=== PATIENT | male | born 1955 | race Caucasian/White ===

== ENCOUNTER 2017-12-04 12:16 | Day surgery (SDC) | payer BC ==
[~2017-12-04 12:16] MED LIST: ASPI81TA82 PO; ATOR20TA42
[2017-12-04] MEDS ORDERED: POVIDONE IODINE 5% (ANTISEPSIS KIT) 4 APPLICATIONS EACH NARE PRN (12:45)
[2017-12-04] MEDS ORDERED: CHLORHEXIDINE GLUCONATE 2 % 1 PACK (2 CLOTHS) TOPICAL PRN (12:45)
[2017-12-04] MEDS ORDERED: LACTATED RINGER'S 1000 ML IV PRN (12:45)
[2017-12-04] MEDS ORDERED: SODIUM CHLORID 0.9% 500 ML IV PRN (12:45)
[2017-12-04] MEDS ORDERED: METOPROLOL TARTRATE 25 MG TAB PO PRN (12:45)
[2017-12-04] MEDS ORDERED: MULT400T PO (12:56)
[2017-12-04] MEDS ORDERED: TYLE325T PO (12:56)
[2017-12-04] MEDS ORDERED: METO25TA3 PO (12:56)
[2017-12-04] MEDS ORDERED: OMEP40CA2 (12:56)
[2017-12-04] MEDS ORDERED: LIPI20TA PO (12:56)
[2017-12-04] MEDS ORDERED: MULTTAB4 (12:56)
[2017-12-04] MEDS ORDERED: APIX5TAB PO (12:56)
[2017-12-04] MEDS ORDERED: PROPOFOL 200 MG/20 ML AMP ONE (14:13)
[2017-12-04] MEDS ORDERED: MIDAZOLAM HCL 2 MG/2 ML VIAL ONE (14:45)
--- NOTE | 2017-12-04 14:56 | MR ---
cc: Gildardo Hart MD, David W MD DATE: 12/04/2017 PROCEDURE PERFORMED: Cardioversion. INDICATION: Atrial fibrillation. CONSENT: Full informed consent was obtained prior to the procedure. The risk of , cardiac arrest, foreseen and unforeseen complications were reviewed. The patient appeared to fully understand these risks. PROCEDURE: The patient was anesthetized as per the Anesthesia Department. The patient underwent ALEXEY. There was no evidence for left atrial appendage thrombus. A 200 joule synchronous shock was then carried out. CONCLUSION: Successful cardioversion from atrial fibrillation to sinus rhythm. PLAN: We will plan to discharge the patient today. Followup in due course in my office and in Dr. Gilmore's office. Gildardo Hart MD HAJ/TL , 02:40 PM , 02:55 PM
--- NOTE | 2017-12-04 15:19 | CF ---
cc: Gildardo Hart MD DATE: 12/04/2017 PROCEDURE: Transesophageal echo. INDICATION: 1. Rule out left atrial appendage thrombus. 2. Mitral regurgitation. PROCEDURAL STATEMENT: The patient was draped and prepped in the usual manner. Anesthesia was given by the Anesthesia Department. Full ALEXEY was performed; however, this had to be cut short as the patient was coughing and desaturating. The left atrial appendage was free of thrombus. The interatrial septum was intact and the left ventricular function was normal. The interventricular septum was intact. Right atrium and right atrial appendage are intact. CONCLUSION: No evidence of [id number] shunting. Normal left ventricular appendage. PLAN: Proceed with cardioversion. Gildardo Hart MD HAJ/ERICK , 02:38 PM , 03:18 PM
--- NOTE | 2017-12-05 07:37 | EKG ---
Date Performed: 12/04/2017 Time Performed: 14:51:50 PTAGE: 62 years EKG: Sinus rhythm . Normal ECG PREVIOUS TRACING : 12/04/2017 12.33 DOCTOR: Tristen Ruffin Interpretating Date/Time 12/05/2017 07:32:58
--- NOTE | 2017-12-05 14:03 | EKG ---
Date Performed: 12/04/2017 Time Performed: 12:33:42 PTAGE: 62 years EKG: Atrial fibrillation. Abnormal ECG PREVIOUS TRACING : 10/04/2015 05.54 DOCTOR: Tristen Ruffin Interpretating Date/Time 12/05/2017 14:01:59
== END 2017-12-04 15:50 | disposition home or self-care (01) ==
LOC: HSDC 12:16 → HDIC 12:17 → HSDC 15:50
PROVIDERS: ATTEND Internal Medicine Cardiovascular Disease
DX: I48.91 Unspecified atrial fibrillation (principal); I10 Essential (primary) hypertension; I34.1 Nonrheumatic mitral (valve) prolapse; Z79.01 Long term (current) use of anticoagulants
CPT/HCPCS: 00410; 92960; 93005; 93312; 93320; 93325; J2250

== ENCOUNTER 2017-12-08 16:13 | Emergency (ER) | payer BC ==
[~2017-12-08] VITALS: Ht 175.3 cm; Wt 91.0 kg
[~2017-12-08 16:13] MED LIST changes: +APIX5TAB PO; -ASPI81TA82 PO; -ATOR20TA42; +LIPI20TA PO; +METO25TA3 PO; +MULT400T PO; +MULTTAB4; +OMEP40CA2; +TYLE325T PO
[2017-12-08 16:19] VITALS: BP 131/64; PULSE 69; RESP 18; TEMP 98.4; O2SAT 99
--- NOTE | 2017-12-08 16:47 | PD ---
HPI Chief Complaint: Headache Time Seen by Provider: 16:46 Travel History International Travel<30 days: No Contact w/Intl Traveler<30days: No Traveled to known affect area: No History of Present Illness HPI 62-year-old male with history of A. fib, recent cardio ablation days ago by Dr. Hart, presents emergency department for evaluation of generalized weakness and a left posterior headache. Patient states the headache began about 2 days ago. There was no sudden onset. It is kind of just been there. He denies any associated nausea or vomiting. It is moderate in severity. It does not radiate anywhere. He denies any trauma. He denies any nausea or vomiting. He has no focal deficits or weakness. He states at times he does feel little lightheaded and let Dr. Ellis in our know this and was advised to decrease his metoprolol. Patient states that he has been on metoprolol and Multaq and he thinks they may be interacting. He has no other symptoms to report at this time. PFSH Past Medical History Arthritis: No Asthma: No Autoimmune Disease: No Blood Disorders: No Heart Rhythm Problems: No Cancer: No Cardiovascular Problems: Yes High Cholesterol: Yes Chemotherapy: No Chest Pain: No Congestive Heart Failure: No COPD: No Cerebrovascular Accident: No Diabetes: No Endocrine: No Gastrointestinal Disorders: Yes (GERD) GERD: Yes Glaucoma: No Genitourinary: No Headaches: No Hepatitis: No Hiatal Hernia: No Hypertension: No Immune Disorder: No Kidney Stones: No Musculoskeletal: Yes Neurologic: No Psychiatric: No Reproductive: No Respiratory: No Migraines: No Myocardial Infarction: No Radiation Therapy: No Renal Failure: No Seizures: No Sleep Apnea: No Thyroid Disease: No Ulcer: Yes Past Surgical History Abdominal Surgery: Yes (APPENDIX) AICD: No Appendectomy: Yes Arteriovenous Shunt: No Cardiac Surgery: Yes Cholecystectomy: No Ear Surgery: No Endocrine Surgery: No Eye Surgery: No Genitourinary Surgery: No Gynecologic Surgery: No Insulin Pump: No Joint Replacement: No Oral Surgery: No Pacemaker: No Thoracic Surgery: No Tonsillectomy: Yes Other Surgery: Yes (FISURECTOMY) Social History Alcohol Use: Yes (4-5 BEERS PER DAY) Tobacco Use: No Substance Use: No Allergies-Medications (Allergen,Severity, Reaction): Coded Allergies: penicillin G (Unverified Allergy, Mild, 01/30/17) Reported Meds & Prescriptions Reported Meds & Active Scripts Active Reported Tylenol (Acetaminophen) 325 Mg Tab 325 Mg PO Q6H Multi Vitamin Mens (Multiple Vitamin) 1 Tab Tab Omeprazole 40 Mg Cap 40 Mg DAILY Lipitor (Atorvastatin Calcium) 20 Mg Tab 20 Mg PO HS Metoprolol Tartrate 25 Mg Tab 25 Mg PO BID Multaq (Dronedarone) 400 Mg Tab 400 Mg PO BID Eliquis (Apixaban) 5 Mg Tab 5 Mg PO BID Review of Systems Except as stated in HPI: all other systems reviewed are Neg Physical Exam Narrative GENERAL: Well-nourished male patient, ambulatory with a non-ataxic gait no acute distress SKIN: Focused skin assessment warm/dry. HEAD: Atraumatic. Normocephalic. EYES: Pupils equal and round. No scleral icterus. No injection or drainage. ENT: No nasal bleeding or discharge. Mucous membranes pink and moist. NECK: Trachea midline. No JVD. CARDIOVASCULAR: Regular rate and rhythm. No murmur appreciated. RESPIRATORY: No accessory muscle use. Clear to auscultation. Breath sounds equal bilaterally. GASTROINTESTINAL: Abdomen soft, non-tender, nondistended. Hepatic and splenic margins not palpable. MUSCULOSKELETAL: No obvious deformities. No clubbing. No cyanosis. No edema. 5 + strength equal bilateral extremities. Negative pronator drift. NEUROLOGICAL: Awake and alert. No obvious cranial nerve deficits. Motor grossly within normal limits. Normal speech. PSYCHIATRIC: Appropriate mood and affect; insight and judgment normal. Data Data Last Documented VS Vital Signs Date Time Temp Pulse Resp B/P (MAP) Pulse Ox O2 Delivery O2 Flow Rate FiO2 12/08/17 17:19 18 97 Nasal Cannula 2.00 12/08/17 16:19 98.4 69 131/64 (86) Orders Orders Complete Blood Count With Diff (12/08/17 16:57) Basic Metabolic Panel (Bmp) (12/08/17 16:57) Prothrombin Time / Inr (Pt) (12/08/17 16:57) Act Partial Throm Time (Ptt) (12/08/17 16:57) Ct Brain W/O Iv Contrast(Rout) (12/08/17 16:57) Ecg Monitoring (12/08/17 16:57) Iv Access Insert/Monitor (12/08/17 16:57) Oximetry (12/08/17 16:57) Sodium Chloride 0.9% Flush (Ns Flush) (12/08/17 17:00) Electrocardiogram (12/08/17 ) Ketorolac Inj (Toradol Inj) (12/08/17 18:30) Sodium Chlor 0.9% 1000 Ml Inj (Ns 1000 M (12/08/17 18:30) Ed Discharge Order (12/08/17 18:48) Labs Laboratory Tests Test 12/08/17 17:04 White Blood Count 5.0 TH/MM3 Red Blood Count 5.06 MIL/MM3 Hemoglobin 15.2 GM/DL Hematocrit 45.5 % Mean Corpuscular Volume 90.0 FL Mean Corpuscular Hemoglobin 30.0 PG Mean Corpuscular Hemoglobin Concent 33.3 % Red Cell Distribution Width 13.0 % Platelet Count 202 TH/MM3 Mean Platelet Volume 7.8 FL Neutrophils (%) (Auto) 59.6 % Lymphocytes (%) (Auto) 26.3 % Monocytes (%) (Auto) 11.6 % Eosinophils (%) (Auto) 1.7 % Basophils (%) (Auto) 0.8 % Neutrophils # (Auto) 3.0 TH/MM3 Lymphocytes # (Auto) 1.3 TH/MM3 Monocytes # (Auto) 0.6 TH/MM3 Eosinophils # (Auto) 0.1 TH/MM3 Basophils # (Auto) 0.0 TH/MM3 CBC Comment DIFF FINAL Differential Comment Prothrombin Time 10.3 SEC Prothromb Time International Ratio 1.0 RATIO Activated Partial Thromboplast Time 27.1 SEC Blood Urea Nitrogen 15 MG/DL Creatinine 1.02 MG/DL Random Glucose 101 MG/DL Calcium Level 8.7 MG/DL Sodium Level 141 MEQ/L Potassium Level 4.3 MEQ/L Chloride Level 108 MEQ/L Carbon Dioxide Level 24.5 MEQ/L Anion Gap 9 MEQ/L Estimat Glomerular Filtration Rate 74 ML/MIN MDM Medical Decision Making Medical Screen Exam Complete: Yes Emergency Medical Condition: Yes Medical Record Reviewed: Yes Differential Diagnosis Headache tension versus cluster versus sinus versus migraine with or without aura versus intracranial hemorrhage Narrative Course 62-year-old male presents emergency department for evaluation of a headache. Patient appears without distress. Vital signs are stable. He has no focal deficits or weakness on exam. Laboratory Tests Test 12/08/17 17:04 White Blood Count 5.0 TH/MM3 Red Blood Count 5.06 MIL/MM3 Hemoglobin 15.2 GM/DL Hematocrit 45.5 % Mean Corpuscular Volume 90.0 FL Mean Corpuscular Hemoglobin 30.0 PG Mean Corpuscular Hemoglobin Concent 33.3 % Red Cell Distribution Width 13.0 % Platelet Count 202 TH/MM3 Mean Platelet Volume 7.8 FL Neutrophils (%) (Auto) 59.6 % Lymphocytes (%) (Auto) 26.3 % Monocytes (%) (Auto) 11.6 % Eosinophils (%) (Auto) 1.7 % Basophils (%) (Auto) 0.8 % Neutrophils # (Auto) 3.0 TH/MM3 Lymphocytes # (Auto) 1.3 TH/MM3 Monocytes # (Auto) 0.6 TH/MM3 Eosinophils # (Auto) 0.1 TH/MM3 Basophils # (Auto) 0.0 TH/MM3 CBC Comment DIFF FINAL Differential Comment Prothrombin Time 10.3 SEC Prothromb Time International Ratio 1.0 RATIO Activated Partial Thromboplast Time 27.1 SEC Blood Urea Nitrogen 15 MG/DL Creatinine 1.02 MG/DL Random Glucose 101 MG/DL Calcium Level 8.7 MG/DL Sodium Level 141 MEQ/L Potassium Level 4.3 MEQ/L Chloride Level 108 MEQ/L Carbon Dioxide Level 24.5 MEQ/L Anion Gap 9 MEQ/L Estimat Glomerular Filtration Rate 74 ML/MIN Last Impressions Head CT 12/08/17 2147 Signed Impressions: CONCLUSION: 1. No acute intracranial abnormalities. I discussed the patient with my attending physician. Patient has been given fluids and pain control. She is also assessed the patient. Patient will be discharged to follow-up with his primary care provider. And return immediately with acute worsening symptoms. Diagnosis Primary Impression: Headache Qualified Codes: R51 - Headache Additional Impression: Fatigue Qualified Codes: R53.83 - Other fatigue Referrals: Legal Paraprofessional Primary Care Physician Patient Instructions: Acute Headache (ED), General Instructions Additional Instructions: Follow-up with a primary care provider Discussed with Dr. Hart possible side effects of your medications and alternative options that you may want to consider Until then, continue all medication as already prescribed. Return immediately to the emergency department with acute worsening of symptoms Med/Other Pt SpecificInfo: No Change to Meds Disposition: 01 DISCHARGE HOME Condition: Stable Nimisha Manuel Dec 08, 2017 16:47
[2017-12-08] MEDS ORDERED: SODIUM CHLORIDE 0.9% FLUSH 10 ML FLUSH IVF PRN (17:00)
[2017-12-08 17:19] VITALS: O2SAT 97
[2017-12-08 17:23] LABS: BASOPHIL % 0.8 % (0.0-2.0); EOSINOPHIL # 0.1 TH/MM3 (0-0.4); EOSINOPHIL % 1.7 % (0.0-4.0); HEMATOCRIT 45.5 % (39.0-51.0); HEMOGLOBIN 15.2 GM/DL (13.0-17.0); LYMPH % 26.3 % (9.0-44.0); LYMPHOCYTE # 1.3 TH/MM3 (1.0-4.8); MEAN CORPUSCULAR HGB CONC 33.3 % (32.0-36.0); MEAN PLATELET VOLUME 7.8 FL (7.0-11.0); MONO % 11.6 % (0.0-8.0); MONOCYTE # 0.6 TH/MM3 (0-0.9); NEUT % 59.6 % (16.0-70.0); PLATELET COUNT 202 TH/MM3 (150-450); RED BLOOD COUNT 5.06 MIL/MM3 (4.50-5.90)
[2017-12-08 17:32] LABS: PROTHROMBIN TIME - PATIENT 10.3 SEC (9.8-11.6)
[2017-12-08 17:48] LABS: BICARBONATE 24.5 MEQ/L (21.0-32.0); CALCIUM 8.7 MG/DL (8.5-10.1); CREATININE 1.02 MG/DL (0.60-1.30)
--- NOTE | 2017-12-08 18:12 | RADRPT ---
EXAM DATE: 12/08/2017 6:06 PM EDT AGE/SEX: 62 years / Male INDICATIONS: Left sided headache. CLINICAL DATA: This is the patient's initial encounter. Patient reports that signs and symptoms have been present for 2 days and indicates a pain score of 8/10. MEDICAL/SURGICAL HISTORY: Cardiovascular disease. Gastroesophageal reflux disease. Cardioversion o n Sunday12/04/2017 Appendectomy. RADIATION DOSE: 48.83 CTDI (mGy) COMPARISON: No prior exams available for comparison. TECHNIQUE: CT of the head without contrast. Using automated exposure control and adjustment of the mA and/or kV according to patient size, radiation dose was kept as low as reasonably achievable to ob tain optimal diagnostic quality images. DICOM format image data is available electronically for revi ew and comparison. FINDINGS: Cerebrum: The ventricles are normal for age. No evidence of midline shift, mass lesion, hemorrhage or acute infarction. No extraaxial fluid collections are seen. Posterior Fossa: The cerebellum and brainstem are intact. The 4th ventricle is midline. The cerebe llopontine angle is unremarkable. Extracranial: The visualized portion of the orbits is intact. Skull: The calvaria is intact. No evidence of skull fracture. CONCLUSION: 1. No acute intracranial abnormalities. Electronically signed by: Vasile Shen MD 12/08/2017 6:11 PM EDT
[2017-12-08] MEDS ORDERED: SODIUM CHLOR 0.9% 1000 ML INJ 1,000 ML IV ONE (18:30)
[2017-12-08] MEDS ORDERED: KETOROLAC TROMETHAMINE 60 MG/2 ML (IM) VIAL IM ONE (18:30)
--- NOTE | 2017-12-09 13:44 | EKG ---
Date Performed: 12/08/2017 Time Performed: 17:21:25 PTAGE: 62 years EKG: Sinus rhythm NORMAL ECG Since PREVIOUS TRACING , no significant change noted PREVIOUS TRACIN12/04/2017 14.51.50 DOCTOR: Addy Michael Interpretating Date/Time 12/09/2017 13:43:04
== END 2017-12-08 19:01 | disposition home or self-care (01) ==
LOC: NEPC 16:13
DX: R51 Headache (principal); R53.83 Other fatigue; R53.1 Weakness; E78.00 Pure hypercholesterolemia, unspecified; I48.91 Unspecified atrial fibrillation; K21.9 Gastro-esophageal reflux disease without esophagitis; Z79.01 Long term (current) use of anticoagulants
CPT/HCPCS: 70450; 80048; 85025; 85610; 85730; 93005; 96372; 99285; J1885; J7030